=== PATIENT | female | born 1960 | race Caucasian/White ===

== ENCOUNTER 2022-08-21 14:41 | Emergency (ER) | payer MEDICAID ==
[~2022-08-21] VITALS: Ht 162.6 cm; Wt 75.0 kg
[2022-08-21] MEDS ORDERED: KETOROLAC 60MG/2ML VIAL IM ONE (20:15)
[2022-08-21 20:19] VITALS: BP 135/72
[2022-08-21] MEDS ORDERED: METH-773 MT (20:21)
[2022-08-21] MEDS ORDERED: IBUP-2029 MT (20:21)
== END 2022-08-21 21:10 | disposition home or self-care (01) ==
LOC: ER 14:41
DX: M54.2 Cervicalgia (principal); M54.9 Dorsalgia, unspecified; M25.511 Pain in right shoulder; E11.9 Type 2 diabetes mellitus without complications; V43.62XA Car passenger injured in collision with other type car in traffic accident, initial encounter; Y93.89 Activity, other specified; Y92.410 Unspecified street and highway as the place of occurrence of the external cause
CPT/HCPCS: 72100; 72125; 96372; 99285; J1885; Z7610